=== PATIENT | female | born 1995 | race American Indian/Alaskan Native ===

== ENCOUNTER 2017-07-12 14:31 | Outpatient (CLI) | payer MEDICAID, OTHER ==
[2017-07-12] MEDS ORDERED: LACTATED RINGERS 500 ML IV ONE (15:31)
[2017-07-12 16:26] VITALS: BP 105/55
[2017-07-12] MEDS ORDERED: LACTATED RINGERS 1,000 ML ONE (19:43)
[2017-07-12 19:56] LABS: Bacteria,Urine 2+ /HPF (Negative); Bilirubin,Urine NEG (Negative); Blood,Urine NEG (Negative); Ketones,Urine NEG (Negative); Leukocyte Esterase,Urine SM (Negative); Nitrite,Urine NEG (Negative); Protein,Urine <15 mg/dL mg/dL (Negative); Urobilinogen,Urine < 2.0 mg/dL (<2.0)
== END 2017-07-12 20:50 | disposition home or self-care (01) ==
LOC: TRG 14:31
PROVIDERS: ATTEND Obstetrics & Gynecology
DX: O47.02 False labor before 37 completed weeks of gestation, second trimester (principal); Z3A.23 23 weeks gestation of pregnancy
CPT/HCPCS: 59025; 81001; 96360; J7120

== ENCOUNTER 2017-07-30 17:00 | Outpatient (CLI) | payer MEDICAID ==
[2017-07-30 18:13] LABS: Urine Drugs of Abuse Note Disclamer
[2017-07-30 18:37] LABS: Bacteria,Urine 1+ /HPF (Negative); Bilirubin,Urine NEG (Negative); Blood,Urine NEG (Negative); Ketones,Urine NEG (Negative); Leukocyte Esterase,Urine SM (Negative); Mucus,Urine FEW /HPF; Nitrite,Urine POS (Negative); Protein,Urine <15 mg/dL mg/dL (Negative); Urobilinogen,Urine < 2.0 mg/dL (<2.0)
[2017-07-30 18:42] VITALS: BP 96/58
[2017-07-30] MEDS ORDERED: LACTATED RINGERS 500 ML IV ONE (19:00)
[2017-07-30] MEDS ORDERED: MACROBID PO ONE (20:00)
== END 2017-07-30 19:25 | disposition home or self-care (01) ==
LOC: TRG 17:00
PROVIDERS: ATTEND Obstetrics & Gynecology
DX: O47.02 False labor before 37 completed weeks of gestation, second trimester (principal); Z3A.26 26 weeks gestation of pregnancy
CPT/HCPCS: 59025; 80307; 81001

== ENCOUNTER 2017-09-23 11:05 | Outpatient (CLI) | payer MEDICAID ==
[2017-09-23 11:37] VITALS: BP 108/58
[2017-09-23] MEDS ORDERED: TYLENOL PO ONE (12:31)
== END 2017-09-23 13:40 | disposition home or self-care (01) ==
LOC: TRG 11:05
PROVIDERS: ATTEND Obstetrics & Gynecology
DX: O47.03 False labor before 37 completed weeks of gestation, third trimester (principal); Z3A.34 34 weeks gestation of pregnancy
CPT/HCPCS: 59025